=== PATIENT | female | born 1970 | race Caucasian/White ===

== ENCOUNTER → 2017-05-08 | Outpatient (CLI) | payer BC ==
--- NOTE | 2017-05-08 10:03 | MM ---
Reason for exam: additional evaluation requested from prior study. Last mammogram was performed 1 year ago. History: Patient is postmenopausal and has history of breast cancer at age 38. Mastectomy of the left breast, April 2009. Malignant left breast needle localization of both breasts, March 21, 2009. Lumpectomy of the left breast, March 21, 2009. Malignant US left guided VAD of the left breast, March 08, 2009. Chemotherapy, 2008. Radiation therapy, 2008. Taking antineoplastic for 5 years beginning at age 38. Physical Findings: Nurse did not find any significant physical abnormalities on exam. MG 3D Diag Mammo W/Cad RT CC and MLO view(s) were taken of the right breast. Prior study comparison: April 30, 2016, right breast MG 3d diag mammo w/cad RT. April 17, 2015, right breast MG 3d diag mammo w/cad RT. There are scattered fibroglandular densities. Tiny nodule posteriorly and inferiorly corresponds to a vessel on 3D images. Tiny nodular asymmetry laterally at a middle depth does not persist. These results were verbally communicated with the patient and result sheet given to the patient on 05/08/17. ASSESSMENT: Negative, BI-RAD 1 RECOMMENDATION: Follow-up diagnostic mammogram of the right breast in 1 year.
== END ==
LOC: RADMAMWWP 08:12
PROVIDERS: ATTEND Internal Medicine Hematology & Oncology
DX: Z08 Encounter for follow-up examination after completed treatment for malignant neoplasm (principal); Z85.3 Personal history of malignant neoplasm of breast
CPT/HCPCS: G0206; G0279

== ENCOUNTER → 2017-07-15 | Outpatient (CLI) | payer BC ==
--- NOTE | 2017-07-15 12:24 | BD ---
EXAMINATION TYPE: MG DEXA axial skeleton. DATE OF EXAM: 07/15/2017 CLINICAL HISTORY: Height: 69 Weight: 236 FRAX RISK QUESTIONS: Alcohol (3 or more units per day): no Family History (Parent hip fracture): no Glucocorticoids (More than 3mos): no (Ex: prednisone, prednisolone, methylprednisolone, dexamethasone, and hydrocortisone). History of Fracture in Adulthood: no Secondary Osteoporosis: 1. Type 1 Diabetes: no, type 2 2. Hyperthyroidism: no 3. Menopause before 45: 39 4. Malnutrition: no 5. Chronic liver disease: no Rheumatoid Arthritis: no Current Tobacco Use: no RISK FACTORS HISTORY OF: Family History of Osteoporosis: no Active: yes Diet low in dairy products/other sources of calcium: no Postmenopausal woman: yes Take estrogen and/or progesterone medications: no Lost more than 2 inches in height since high school: no Frequent falls: no Poor Health: no Hyperparathyroidism: no Adrenal Insufficiency: no MEDICATIONS: Prednisone or other steroids: no Thyroid Medications: no Osteoporosis Medications: no Additional Medications: calcium with vitamin D, diabetes meds, antineoplastic , blood pressure meds Additional History: Breast CA age 38; Radiation/Chemo EXAM MEASUREMENTS: Bone mineral densitometry was performed using the [employer] System. Bone mineral density as measured about the Lumbar spine is: ----- L1-L4(G/cm2): 1.336 T Score Values are as follows: ----- L2: 1.2 ----- L3: 2.3 ----- L4: 0.7 ----- L1-L4: 1.3 Bone mineral density has: Increased 0.4% since study of: 06/27/2015 Bone mineral density about the R hip (g/cm2): 0.962 Bone mineral density about the L hip (g/cm2): 0.968 T Score values are as follows: -----R Neck: -0.5 -----L Neck: -0.5 -----R Total: 0.6 -----L Total: 0.3 Bone mineral density has: Decreased -3.7% since study of: 06/27/2015 IMPRESSION: No evidence for osteoporosis or osteopenia. NOTE: T-SCORE=SD OF THE YOUNG ADULT MEAN.
== END | disposition home or self-care (01) ==
LOC: RADBDWWP 09:22
PROVIDERS: ATTEND Internal Medicine Hematology & Oncology
DX: C50.512 Malignant neoplasm of lower-outer quadrant of left female breast (principal); N95.1 Menopausal and female climacteric states; Z79.890 Hormone replacement therapy
CPT/HCPCS: 77080

== ENCOUNTER → 2018-06-26 | Outpatient (CLI) | payer BC ==
--- NOTE | 2018-06-30 08:02 | MM ---
Reason for exam: history of breast cancer, mastectomy. Last mammogram was performed 1 year and 2 months ago. History: Patient is postmenopausal and has history of breast cancer at age 38. Mastectomy of the left breast, April 2009. Malignant left breast needle localization of both breasts, March 21, 2009. Lumpectomy of the left breast, March 21, 2009. Malignant US left guided VAD of the left breast, March 08, 2009. Chemotherapy, 2008. Radiation therapy, 2008. Taking antineoplastic for 5 years beginning at age 38. Physical Findings: Nurse did not find any significant physical abnormalities on exam. MG 3D Diag Mammo W/Cad RT CC and MLO view(s) were taken of the right breast. Prior study comparison: May 08, 2017, right breast MG 3d diag mammo w/cad RT. April 30, 2016, right breast MG 3d diag mammo w/cad RT. There are scattered fibroglandular densities. No significant new finding when compared with prior studies. These results were verbally communicated with the patient and result sheet given to the patient on 06/26/18. ASSESSMENT: Benign, BI-RAD 2 RECOMMENDATION: Routine screening mammogram of the right breast in 1 year.
== END | disposition home or self-care (01) ==
LOC: RADMAMWWP 09:39
PROVIDERS: ATTEND Internal Medicine Hematology & Oncology
DX: Z08 Encounter for follow-up examination after completed treatment for malignant neoplasm (principal); Z85.3 Personal history of malignant neoplasm of breast
CPT/HCPCS: 77061; 77065

== ENCOUNTER → 2019-05-05 | Outpatient (CLI) | payer BC ==
[2019-05-05 08:14] LABS: African American GFR (CKD) >90 (>60 ml/min/1.73 sqM); Blood Urea Nitrogen 19 mg/dL (7-17); Non-African American GFR(CKD) 80 (>60 ml/min/1.73 sqM)
--- NOTE | 2019-05-05 10:01 | CT ---
EXAMINATION TYPE: CT ChestAbdPelvis w con DATE OF EXAM: 05/05/2019 INDICATION: Breast cancer, Osteoporosis COMPARISON: 04/27/2012 CT DLP: 2138.6 mGycm CONTRAST: Performed with Oral Contrast and with IV Contrast, patient injected with 100 mL of Isovue 300. TECHNIQUE: Axial images at 5 mm thick sections. Reconstructed images in the coronal plane. Delayed images through the kidneys. FINDINGS: CT CHEST: There is a left breast prosthesis. Portion of the thyroid visualized is normal. No suspicious lung nodules or focal infiltrates are present. No enlarged mediastinal or hilar adenopathy is evident. The ascending aorta diameter at the level of the main pulmonary artery is 3.2 cm. The main pulmonary artery diameter at the bifurcation is 2.[address] ABDOMEN: Liver: There is moderate fatty infiltration of the liver. No discrete masses or cysts are evident Spleen: Normal Pancreas: Normal Adrenal glands: The adrenal glands are normal. Gallbladder: Normal Kidneys: No masses are evident. No hydronephrosis is present. Small cortical renal cysts on the rig ht kidney on delayed images. Aorta: Vascular calcification is within the aorta. Inferior vena cava: Normal. CT PELVIS: Loops of bowel within the abdomen and pelvis are normal. There are loops of bowel which are incom pletely distended or lack oral contrast limiting their evaluation. Appendix: Normal as visualized. Urinary bladder: Normal. Genitourinary structures: Uterus contains a small amount of air within the endometrial canal. Correla te for recent instrumentation. Osseous structures:There may be a well-defined sclerotic lucency within the femoral neck. This was pr esent previously. There is a well-defined sclerotic area within the lower thoracic spine region of T1 1. This is a change from 2012. IMPRESSIONS: 1. No suspicious abnormality to account for left upper quadrant pain. 2. New sclerotic area within the T11 vertebral body. 3. Moderate fatty infiltration liver.
--- NOTE | 2019-05-05 11:39 | NM ---
EXAMINATION TYPE: NM bone scan whole body DATE OF EXAM: 05/05/2019 COMPARISON: Same day whole body CT. Prior bone scan 2012. HISTORY: Breast cancer. Delayed whole-body scanning was performed following the injection of 26 mCi Tc 99m MDP. Images acqui red 3 hours post injection. Whole body images in anterior and posterior projection as well as additio nal images of the thorax and abdomen are acquired In multiple projections. FINDINGS: No suspicious new areas of increased radiotracer uptake in the bones to suggest metastatic disease or other suspicious abnormality. Stable mild uptake right proximal femur intertrochanteric and subtroch anteric level correspond to well-defined lucent lesions with sclerotic margins unchanged from 2012 im aging presumed nonaggressive. IMPRESSION: As above.
== END | disposition home or self-care (01) ==
LOC: RADCTMAIN 07:35
PROVIDERS: ATTEND Internal Medicine Hematology & Oncology
DX: K76.0 Fatty (change of) liver, not elsewhere classified (principal); M25.851 Other specified joint disorders, right hip; M81.0 Age-related osteoporosis without current pathological fracture; C50.512 Malignant neoplasm of lower-outer quadrant of left female breast; Z91.048 Other nonmedicinal substance allergy status; Z88.6 Allergy status to analgesic agent
CPT/HCPCS: 82565; 84520; 71260; 74177; 36415; 78306; A9503; Q9967 ×2

== ENCOUNTER → 2019-11-19 | Outpatient (CLI) | payer BC ==
--- NOTE | 2019-11-23 10:32 | MM ---
Reason for exam: additional evaluation requested from prior study. Last mammogram was performed 1 year and 5 months ago. History: Patient is postmenopausal and has history of breast cancer at age 38. Silicone gel implant in the left breast, 2012. Mastectomy of the left breast, April 2009. Malignant left breast needle localization of both breasts, March 21, 2009. Lumpectomy of the left breast, March 21, 2009. Malignant US left guided VAD of the left breast, March 08, 2009. Chemotherapy, 2008. Radiation therapy, 2008. Taking antineoplastic for 5 years beginning at age 38. Physical Findings: Nurse did not find any significant physical abnormalities on exam. MG 3D Diag Mammo W/Cad RT CC and MLO view(s) were taken of the right breast. Prior study comparison: June 26, 2018, right breast MG 3d diag mammo w/cad RT. May 08, 2017, right breast MG 3d diag mammo w/cad RT. There are scattered fibroglandular densities. Stable axillary tail nodes. No significant new findings when compared with previous films. These results were verbally communicated with the patient and result sheet given to the patient on 11/19/19. ASSESSMENT: Negative, BI-RAD 1 RECOMMENDATION: Follow-up diagnostic mammogram of the right breast in 1 year.
== END | disposition home or self-care (01) ==
LOC: RADMAMWWP 14:32
PROVIDERS: ATTEND Internal Medicine Hematology & Oncology
DX: Z85.3 Personal history of malignant neoplasm of breast (principal)
CPT/HCPCS: 77061; 77065

== ENCOUNTER → 2019-12-20 | Outpatient (CLI) | payer BC ==
--- NOTE | 2019-12-21 18:53 | BD ---
EXAMINATION TYPE: Axial Bone Density DATE OF EXAM: 12/20/2019 COMPARISON: NONE CLINICAL HISTORY: Height: 5 FT 9 IN Weight: 233 FRAX RISK QUESTIONS: Alcohol (3 or more units per day): NO Family History (Parent hip fracture): NO Glucocorticoids (More than 3mos): NO (Ex: prednisone, prednisolone, methylprednisolone, dexamethasone, and hydrocortisone). History of Fracture in Adulthood: NO Secondary Osteoporosis: 1. Type 1 Diabetes: NO 2. Hyperthyroidism: NO 3. Menopause before 45: YES 4. Malnutrition: NO 5. Chronic liver disease: NO Rheumatoid Arthritis: NO Current Tobacco Use: NO RISK FACTORS HISTORY OF: Active: YES Postmenopausal woman: OVARIES REMOVED AGE 39 MEDICATIONS: Additional Medications: ARIMEDEX, BYSTOLIC,INVOCANNA, Additional History: BREAST CANCER 2009 RADIATION AND CHEMO EXAM MEASUREMENTS: Bone mineral densitometry was performed using the [employer] System. Bone mineral density as measured about the Lumbar spine is: ----- L1-L4(G/cm2): 1.300 T Score Values are as follows: ----- L2: 2.0 ----- L3: 1.0 ----- L4: -0.2 ----- L1-L4: 1.0 Bone mineral density has: DECREASED -4.5 % since study of: 2017 Bone mineral density about the R hip (g/cm2): 0.957 Bone mineral density about the L hip (g/cm2): 0.913 T Score values are as follows: -----R Neck: -0.6 -----L Neck: -0.9 -----R Total: 0.5 -----L Total: 0.4 Bone mineral density has: INCREASED 0.2 % since study of: 2018 IMPRESSION: Normal (Values between +1 and -1 indicate normal bone mass). Consider repeating this study in 5 year s or sooner if there is some new clinical indication. NOTE: T-SCORE=SD OF THE YOUNG ADULT MEAN.
== END | disposition home or self-care (01) ==
LOC: RADBDWWP 16:16
PROVIDERS: ATTEND Internal Medicine Hematology & Oncology
DX: M81.0 Age-related osteoporosis without current pathological fracture (principal)
CPT/HCPCS: 77080

== ENCOUNTER 2020-03-30 07:30 | Day surgery (SDC) | payer BC ==
[2020-03-28 11:11] VITALS: BMI 33.5
[~2020-03-30 07:30] MED LIST: LACTATED RINGERS 1,000 ML IV SCH
[2020-03-30] MEDS ORDERED: LIDOCAINE 1% (10MG/ML) FOR IV START INTRADERMA ONE (07:55)
[2020-03-30 07:58] VITALS: RESP 16; TEMP 97.7
[2020-03-30] MEDS ORDERED: PROPOFOL 10 MG/ML 20 ML VIAL IV ONE (08:25)
--- NOTE | 2020-03-30 08:54 | P.PCN ---
Date of Procedure: 03/30/20 Description of Procedure: BRIEF HISTORY: Patient is a 49-year-old female presenting for outpatient colonoscopy for screening for malignant neoplasm of the colon. The patient reports prior colonoscopy approximately 7 years ago at the time of her diagnosis of breast cancer. She denies any change in bowel habits or blood per rectum. No family history of colon cancer. PROCEDURE PERFORMED: Colonoscopy with polypectomy. PREOPERATIVE DIAGNOSIS: Screening for malignant neoplasm of the colon, last colonoscopy 7 years. ESTIMATED BLOOD LOSS: Minimal. IV sedation per Anesthesia. PROCEDURE: After informed consent was obtained, the patient, was brought into the endoscopy unit. IV sedation was administered by Anesthesia under continuous monitoring. Digital rectal examination was normal. Initially the Olympus CF-190 flexible video colonoscope was then inserted in the rectum, gradually advanced into the cecum without any difficulty. Careful examination was performed as the scope was gradually being withdrawn. Ileocecal valve and the appendiceal orifice were visualized and appeared normal. Prep was excellent. Mucosa of the cecum, ascending colon, transverse colon, descending colon, sigmoid colon, and rectum appeared normal. diminutive 1 mm ascending colon polyp removed with cold forcep polypectomy. 2 flat polyps removed with cold snare polypectomy from the transverse colon measuring 4 mm in size and from the splenic flexure measuring 5 mm in size. Retroflexion was performed in the rectum and no lesions were seen. The patient tolerated the procedure well. IMPRESSION: 2 flat polyps removed with the family the transverse colon and splenic flexure. Diminutive ascending colon polyp removed with cold forcep polypectomy. RECOMMENDATIONS: Findings of this examination were discussed with the patient and her . Okay to resume diet. Continue medications. Would recommend repeat colonoscopy in 5 years for colon polyp pending pathology from polypectomy.
[2020-03-30 09:38] VITALS: BP 115/76; PULSE 55
== END 2020-03-30 09:40 | disposition home or self-care (01) ==
LOC: ORWHC2ENDO 07:30
PROVIDERS: ATTEND Internal Medicine
DX: Z12.11 Encounter for screening for malignant neoplasm of colon (principal); E11.9 Type 2 diabetes mellitus without complications; C50.919 Malignant neoplasm of unspecified site of unspecified female breast; K63.5 Polyp of colon; D12.3 Benign neoplasm of transverse colon; I10 Essential (primary) hypertension; E78.5 Hyperlipidemia, unspecified; Z88.5 Allergy status to narcotic agent; Z91.09 Other allergy status, other than to drugs and biological substances; Z79.899 Other long term (current) drug therapy; Z79.811 Long term (current) use of aromatase inhibitors; Z90.10 Acquired absence of unspecified breast and nipple; Z98.890 Other specified postprocedural states
CPT/HCPCS: 88305; 45380; 45385; J2704

== ENCOUNTER → 2020-11-21 | Outpatient (CLI) | payer BC ==
--- NOTE | 2020-11-23 12:34 | MM ---
Reason for exam: additional evaluation requested from prior study. Last mammogram was performed 1 year ago. History: Patient is postmenopausal and has history of breast cancer at age 38. Silicone gel implant in the left breast, 2012. Mastectomy of the left breast, April 2009. Malignant left breast needle localization of both breasts, March 21, 2009. Lumpectomy of the left breast, March 21, 2009. Malignant US left guided VAD of the left breast, March 08, 2009. Chemotherapy, 2008. Radiation therapy, 2008. Taking antineoplastic for 5 years beginning at age 38. Physical Findings: Nurse did not find any significant physical abnormalities on exam. MG 3D Diag Mammo W/Cad RT CC and MLO view(s) were taken of the right breast. Prior study comparison: November 19, 2019, right breast MG 3d diag mammo w/cad RT. June 26, 2018, right breast MG 3d diag mammo w/cad RT. There are scattered fibroglandular densities. Stable post left mastectomy. These results were verbally communicated with the patient and result sheet given to the patient on 11/21/20. ASSESSMENT: Benign, BI-RAD 2 RECOMMENDATION: Routine screening mammogram of the right breast in 1 year.
== END | disposition home or self-care (01) ==
LOC: RADMAMWWP 08:14
PROVIDERS: ATTEND Internal Medicine Hematology & Oncology
DX: N64.89 Other specified disorders of breast (principal); Z78.0 Asymptomatic menopausal state; Z85.3 Personal history of malignant neoplasm of breast; Z90.12 Acquired absence of left breast and nipple
CPT/HCPCS: 77061; 77065

== ENCOUNTER → 2021-01-10 | Outpatient (CLI) | payer BC ==
--- NOTE | 2021-01-11 08:13 | BMR ---
EXAMINATION TYPE: MR breast BILAT wo con DATE OF EXAM: 01/10/2021 COMPARISON: Chest CT May 05, 2019. Diagnostic right breast 3-D mammogram November 21, 2020 BI-RADS 2 . HISTORY: Evaluate for Left Implant Rupture, Breast changes shape, just doesn't feel right, history of left breast neoplasm 2008, silicone implant placed 2012. TECHNIQUE: A series of fat and water weighted images in the long and short axis views of both breasts are obtained in conjunction with dynamic contrast MRI with subtraction technique without IV contrast . The Three-dimensional and additional postprocessing imaging is created on independent workstation and reviewed during official interpretation of this study. FINDINGS: Scattered fibroglandular tissue throughout the right breast is redemonstrated. T2-weighted images show no suspicious axillary adenopathy. There is persistent subpectoral left breast silicone i mplant. There is no evidence of silicone outside the implant to suggest extracapsular rupture. Slight infolding along the peripheral margins has similar appearance to 2019 CT. No new suspicious marked i nfolding or layering or keyhole sign to suggest intracapsular rupture. There is asymmetry to the koko sts on MRI with more prominent right breast but this is likely product of imaging in prone position v ersus supine position on CT. No suspicious skin thickening is seen. Chest wall is intact bilaterally. IMPRESSION: No MRI evidence for intracapsular or extracapsular left breast implant rupture. BI-RADS 2 benign findings. Recommendation: Manage patient on left breast symptoms on clinical basis. Patient due for continued a nnual right breast mammogram November 2021.
== END | disposition home or self-care (01) ==
LOC: RADMRIMAIN 13:34
PROVIDERS: ATTEND Plastic Surgery
DX: Z03.89 Encounter for observation for other suspected diseases and conditions ruled out (principal)
CPT/HCPCS: 77047

== ENCOUNTER → 2021-12-24 | Outpatient (CLI) | payer BC ==
--- NOTE | 2021-12-24 11:28 | BD ---
EXAMINATION TYPE: Axial Bone Density DATE OF EXAM: 12/24/2021 COMPARISON: 07.15.2017 CLINICAL HISTORY: 51 years year old Female. ICD-10 CODE: C50.512 BR CANCER; Z79.890 HRT Height: 68.8 Weight: 233 FRAX RISK QUESTIONS: Secondary Osteoporosis: 3. Menopause before 45: YES RISK FACTORS HISTORY OF: Active: YES Postmenopausal woman: YES PARTIAL HYSTERECTOMY AT 39 MEDICATIONS: Additional Medications: CALCIUM WITH VITAMIN D, BP MEDS, CHOLESTEROL MEDS, DIABETIC MEDS, ANTINEOPLAS TIC Additional History: LEFT MASTECTOMY AT AGE 38, CHEMO AND RADIATION EXAM MEASUREMENTS: Bone mineral densitometry was performed using the [employer] System. Bone mineral density as measured about the Lumbar spine is: ----- L1-L4(G/cm2): 1.316 T Score Values are as follows: ----- L1: 2.3 ----- L2: 3.1 ----- L3: 0.4 ----- L4: -0.8 ----- L1-L4: 1.1 Bone mineral density has: Decreased -5.6% since study of: 07.15.2017 Bone mineral density about the R hip (g/cm2): 1.098 Bone mineral density about the L hip (g/cm2): 1.039 T Score values are as follows: -----R Neck: -0.5 -----L Neck: -0.8 -----R Total: 0.7 -----L Total: 0.3 Bone mineral density has: Increased 0.5% since study of: 07.15.2017 FRAX%s: The graph provided illustrates a 4.6% chance for a major osteoporotic fx and a 0.2% chance fo r the hips probability for fx in 10 years time. IMPRESSION: Normal (Values between +1 and -1 indicate normal bone mass). Consider repeating this study in 5 year s or sooner if there is some new clinical indication. NOTE: T-SCORE=SD OF THE YOUNG ADULT MEAN.
== END | disposition home or self-care (01) ==
LOC: RADBDWWP 10:01
PROVIDERS: ATTEND Internal Medicine Hematology & Oncology
DX: C50.512 Malignant neoplasm of lower-outer quadrant of left female breast (principal); Z78.0 Asymptomatic menopausal state
CPT/HCPCS: 77080

== ENCOUNTER → 2022-01-18 | Outpatient (CLI) | payer BC ==
--- NOTE | 2022-01-20 13:30 | PE ---
EXAMINATION TYPE: PET CT fusion skull to thigh DATE OF EXAM: 01/18/2022 CLINICAL INDICATION:Female, 51 years old with history of [id number]; left breast cancer. TECHNIQUE: Following the intravenous administration of 12.1 mCi of F-18 FDG, whole body images are performed from the skull base to the midthigh. Images are reviewed on the computer in the coronal, a xial, and sagittal planes. Reconstructed rotating images are created on independent workstation and reviewed on the computer. A non-contrast CT is performed in conjunction with the PET scan. Glucose level 123 mg/dL COMPARISON: CT 05/05/2019, PET/CT 09/23/2009. FINDINGS: Mediastinal SUV maximum is 2.3. Hepatic parenchyma SUV maximum is 3.1. SKULL BASE AND NECK: No suspicious FDG activity. CHEST, MEDIASTINUM, AND HILAR REGION: No suspicious FDG activity. ABDOMEN AND PELVIS: No suspicious FDG activity. Physiologic uptake is seen within the bowel and renal collecting systems. OSSEOUS STRUCTURES: Scattered new and increase in size of sclerotic osteoblastic disease throughout t he spine. There are new destructive osteolytic metastatic disease on today's exam most pronounced at C5. Additional there is moderate scattered increase in sclerotic osteoblastic disease and osteolytic/ destructive lesions. There are new sclerotic areas within the right iliac bone and right sacrum. There is abnormal FDG uptake within the spine examples include. - T1 vertebral body posterior left axis max SUV 3.5 - T5 vertebral body and posterior elements max SUV 6.7. - T6 posterior elements max SUV 4.3 - T7 posterior elements Max SUV 3.6 - T9 posterior elements Max SUV 4.[address]: The left breast is surgically absent. Implant appears intact. Surgical clips are seen in th e left axilla. Hepatic steatosis is present. Colonic diverticula present. IMPRESSION: Progression of disease with multilevel spinal sclerotic osseous metastatic disease which have increas ed in size and number with additional new areas of osseous lytic destruction most pronounced at T5 po sterior elements.
== END | disposition home or self-care (01) ==
LOC: RADPETMAIN 09:24
PROVIDERS: ATTEND Internal Medicine Hematology & Oncology
DX: C50.512 Malignant neoplasm of lower-outer quadrant of left female breast (principal); G95.89 Other specified diseases of spinal cord
CPT/HCPCS: 78815; A9552

== ENCOUNTER → 2022-04-29 | Outpatient (CLI) | payer BC ==
[2022-04-29 12:36] LABS: African American GFR (CKD) >90 (>60 ml/min/1.73 sqM); Blood Urea Nitrogen 15 mg/dL (7-17); Non-African American GFR(CKD) >90 (>60 ml/min/1.73 sqM)
--- NOTE | 2022-04-29 13:12 | CT ---
EXAMINATION TYPE: CT abdomen w con CT DLP: 1326.50 mGycm, Automated exposure control for dose reduction was used. DATE OF EXAM: 04/29/2022 12:58 PM COMPARISON: PET/CT 01/18/2022 CLINICAL INDICATION:Female, 51 years old with history of breast ca; elevated liver enzymes TECHNIQUE: Axial CT of the abdomen and pelvis. Sagittal and coronal reformats were created on a [employer] workstation. Contrast used:70 mL of Isovue 300 with IV Contrast, Oral contrast used: with Oral Contrast FINDINGS: LOWER CHEST: Unremarkable ABDOMEN LIVER: No evidence for biliary ductal dilatation or mass. GALLBLADDER AND BILE DUCTS: Unremarkable. PANCREAS: Unremarkable. SPLEEN: Unremarkable. ADRENAL GLANDS: Unremarkable. KIDNEYS AND URETERS: No evidence of hydronephrosis or renal calculus. The ureters are unremarkable. Right subcentimeter probable cyst. PELVIS BLADDER: Unremarkable REPRODUCTIVE: Unremarkable. ABDOMEN & PELVIS STOMACH AND BOWEL: No evidence of bowel obstruction. PERITONEUM: No evidence of pneumoperitoneum or free fluid. VASCULATURE: No evidence of aortic aneurysm. MUSCULOSKELETAL: No evidence of acute fracture. Scattered sclerotic areas are seen throughout the oss eous structures; some of these sclerotic foci appear more dense including sacral lesion measuring 7 m m and L1 vertebral body lesion measuring up to 9 mm which may be fractionally larger than prior at 7 mm. LYMPH NODES: No gross evidence for lymphadenopathy. SOFT TISSUE/ABDOMINAL WALL: Unremarkable IMPRESSION: 1. No evidence for acute abdominal process. The liver parenchyma appears homogenous without evidence of mass or biliary ductal dilatation. 2. Scattered osseous sclerotic metastatic disease some of which may be minimally increased and sclero sis from prior. Attention on follow-up PET/CT as clinically warranted.
== END | disposition home or self-care (01) ==
LOC: RADCTMAIN 11:40
PROVIDERS: ATTEND Internal Medicine Hematology & Oncology
DX: K76.89 Other specified diseases of liver (principal); Z17.0 Estrogen receptor positive status [ER+]; R74.8 Abnormal levels of other serum enzymes; Z85.3 Personal history of malignant neoplasm of breast
CPT/HCPCS: 82565; 84520; 74160; 36415; Q9967 ×2

== ENCOUNTER → 2023-01-04 | Outpatient (CLI) | payer BC ==
--- NOTE | 2023-01-04 13:49 | PE ---
EXAMINATION TYPE: PET CT fusion skull to thigh DATE OF EXAM: 01/04/2023 CLINICAL INDICATION:Female, 52 years old with history of C50.512 breast ca; TECHNIQUE: Following the intravenous administration of 12.34 mCi of F-18 FDG, whole body images are performed from the skull base to the midthigh. Images are reviewed on the computer in the coronal, axial, and sagittal planes. Reconstructed rotating images are created on independent workstation and reviewed on the computer. A non-contrast CT is performed in conjunction with the PET scan. Glucose level 96 mg/dL COMPARISON: CT None, PET/CT 01/18/2022, FINDINGS: Mediastinal SUV maximum is 1.2. Hepatic parenchyma SUV maximum is 2.2 SKULL BASE AND NECK: No suspicious FDG activity. CHEST, MEDIASTINUM, AND HILAR REGION: No suspicious FDG activity. ABDOMEN AND PELVIS: No suspicious FDG activity. Physiologic uptake is seen within the bowel and renal collecting systems. OSSEOUS STRUCTURES: Interval increase in sclerosis compatible with osteoblastic metastatic disease th roughout the spine. There are new sclerotic areas within the right iliac bone and right sacrum. There is abnormal FDG uptake within the spine examples include. - T1 vertebral body posterior left axis max SUV 2.1, previously 3.5 - T5 vertebral body and posterior elements max SUV 2.4, previously 6.7. - T6 posterior elements max SUV 2.9, previously 4.3 - T7 posterior elements Max SUV 1.9, previously 3.6 - T9 posterior elements Max SUV 2.1, previously 4.2 - T11 vertebral body max SUV 2.6, personally 2.3. OTHER CT: The left breast is surgically absent. Implant appears intact. Surgical clips are seen in th e left axilla. Hepatic steatosis is present. Colonic diverticula present. IMPRESSION: Progression of sclerosis throughout the osseous structures. Suggesting posttreatment change. Multiple areas remain within the spine with increased FDG activity which have decreased from prior suggesting positive response to therapy.
== END | disposition home or self-care (01) ==
LOC: RADPETMAIN 09:49
PROVIDERS: ATTEND Internal Medicine Hematology & Oncology
DX: C50.512 Malignant neoplasm of lower-outer quadrant of left female breast (principal)
CPT/HCPCS: 78815; A9552

== ENCOUNTER → 2023-07-31 | Outpatient (CLI) | payer BC ==
[2023-07-31 12:01] LABS: African American GFR (CKD) >90 (>60 ml/min/1.73 sqM); Blood Urea Nitrogen 15 mg/dL (7-17); Non-African American GFR(CKD) >90 (>60 ml/min/1.73 sqM)
--- NOTE | 2023-07-31 13:01 | CT ---
EXAMINATION: CT CHEST, ABDOMEN AND PELVIS WITH IV CONTRAST DATE OF EXAMINATION: 29/07/2023. COMPARISON: PET/CT on 01/04/2023.. INDICATION: Breast cancer. PROCEDURE: Axial CT of the chest, abdomen and pelvis was performed following the intravenous adminis tration of 100 ml Isovue 300. Coronal and sagittal reformats were performed. CT dose lowering techni ques were used, to include: automated exposure control, adjustment for patient size, and/or use of it erative reconstruction. FINDINGS: CHEST: CHEST WALL: There is a left-sided breast implant with prior left mastectomy. Surgical clips are seen within the left axillary region. Mediastinum and Dulce: There is no axillary, mediastinal or hilar lymphadenopathy. Subcentimeter right thyroid nodule. Pleural and Pericardial spaces: There are no pleural or pericardial effusions. Cardiovascular: The thoracic aorta is normal in size without evidence of aneurysm or dissection. Pulmonary Artery: There are no central pulmonary arterial filling defects. Lung Parenchyma and Airways: The lungs are clear. ABDOMEN: Liver and Biliary system: There is mild diffuse decreased attenuation of the liver compatible fatty liver infiltration. No focal liver lesions are seen. Adrenal glands: Normal. Kidneys and ureters: There is a 1.4 cm cyst in the upper pole the right kidney. Kidneys and ureters otherwise appear unremarkable. Spleen: Normal. Pancreas: Normal. Gallbladder: Normal. Lymph nodes, Peritoneum and mesentery: There is no mesenteric or retroperitoneal lymphadenopathy. Gastrointestinal tract: There are no dilated loops of bowel or free intraperitoneal air. . The appe ndix is normal. Aorta/IVC: There is mild vascular calcification throughout the abdominal aorta without evidence of aneurysmal dilation or dissection.. IVC normal. Abdominal wall: Normal. PELVIS: Fluid: There is trace free fluid within the pelvis. Lymph Nodes: There is no pelvic or inguinal lymphadenopathy.. Urinary bladder: Normal. BONES: Similar appearance to the osseous chronic metastatic disease.. ADDITIONAL SIGNIFICANT FINDINGS: None. IMPRESSION: 1. Similar appearance to the atherosclerotic metastatic disease. 2. No other evidence of metastatic disease definitively identified in the chest, abdomen or pelvis. 3. Additional incidental findings noted above.
--- NOTE | 2023-08-01 11:24 | NM ---
EXAMINATION TYPE: NM bone scan whole body DATE OF EXAM: 07/31/2023 COMPARISON: 05/05/[address] 07/31/2023 CLINICAL INDICATION: Female, 52 years old with history of C50.512 BR CA; TECHNIQUE: Delayed whole-body scanning was performed following the injection of 23 mCi Tc 99m MDP. I mages acquired 4 hours post injection. FINDINGS: There is increased activity throughout the upper third thoracic spine and around the region of the th oracolumbar junction. Abnormal activity along the right side of the mandible and along the lateral as pect of the left lower ribs. Also involving the anterior right iliac crest and in the region of the l eft SI joint. IMPRESSION: Scintigraphic evidence for osseous metastatic disease to the right mandible, lateral left lower ribs, anterior right iliac crest, left SI joint region, as well as the upper third thoracic spine and thor acolumbar junction. Findings are new from the patient's 2019 prior bone scan.
== END | disposition home or self-care (01) ==
LOC: RADNMMAIN 10:49
PROVIDERS: ATTEND Internal Medicine Hematology & Oncology
DX: C50.512 Malignant neoplasm of lower-outer quadrant of left female breast (principal); M13.0 Polyarthritis, unspecified; M81.0 Age-related osteoporosis without current pathological fracture; I10 Essential (primary) hypertension; Z17.0 Estrogen receptor positive status [ER+]
CPT/HCPCS: 82565; 84520; 71260; 74177; 36415; 78306; A9503; Q9967

== ENCOUNTER → 2023-10-17 | Outpatient (CLI) | payer BC ==
[2023-10-17 10:53] LABS: African American GFR (CKD) >90 (>60 ml/min/1.73 sqM); Blood Urea Nitrogen 17 mg/dL (7-17); Non-African American GFR(CKD) >90 (>60 ml/min/1.73 sqM)
--- NOTE | 2023-10-17 12:52 | CT ---
EXAMINATION TYPE: CT ChestAbdPelvis w con CT DLP: 1475 mGycm, Automated exposure control for dose reduction was used. DATE OF EXAM: 10/17/2023 12:08 PM COMPARISON: 07/31/2023, 01/04/2023 CLINICAL INDICATION:Female, 53 years old with history of C50.512 MAL IG NEOPLASM OF LOWER-OUTER QUADRANT OF; [facility], Technique: CT ChestAbdPelvis w con; Multiple axial images were obtained. Two-dimensional coronal and sagittal reconstructions were obtained. Contrast used:100 mL of Isovue 300 with IV Contrast, Oral contrast used: with Oral Contrast Findings: LUNGS/ PLEURA: The lung parenchyma appears unremarkable. AIRWAY: Patent and unremarkable. HEART: Size within normal limits. MEDIASTINUM: No gross evidence of adenopathy. VASCULATURE: No aortic aneurysm. SOFT TISSUES/LYMPH NODES: Left breast implant appears intact. No lymph nodes identified within the ax illa.r right thyroid gland nodule measuring 8 mm. LOWER NECK: No significant findings. ABDOMEN LIVER: Unremarkable GALLBLADDER AND BILE DUCTS: Unremarkable. PANCREAS: Unremarkable. SPLEEN: Unremarkable. ADRENAL GLANDS: Unremarkable. KIDNEYS AND URETERS: No evidence of hydronephrosis or renal calculus. The ureters are unremarkable. PELVIS BLADDER: Unremarkable REPRODUCTIVE: Unremarkable. ABDOMEN & PELVIS STOMACH AND BOWEL: No evidence of bowel obstruction. Moderate amount of stool throughout the colon. PERITONEUM: No evidence of pneumoperitoneum or free fluid. VASCULATURE: Mild atherosclerotic calcifications are present throughout the abdominal aorta and its b ranches. MUSCULOSKELETAL: Scattered sclerotic osseous metastatic disease which is not significantly changed in size. SOFT TISSUE/ABDOMINAL WALL: Unremarkable IMPRESSION: Similar osseous metastatic disease. No evidence for lymphadenopathy. No new or enlarging pulmonary no dule.
--- NOTE | 2023-10-17 15:43 | NM ---
EXAMINATION TYPE: NM bone scan whole body DATE OF EXAM: 10/17/2023 COMPARISON: 07/31/2023. CT same day CLINICAL INDICATION: Female, 53 years old with history of C50.512 MALIG NEOPLASM OF LOWER-OUTER QUADR ANT OF; TECHNIQUE: Delayed whole-body scanning was performed following the injection of 23.2 mCi Tc 99m MDP. Images acquired 3.5 hours post injection. FINDINGS: Abnormal tracer activity right mandible, lateral left lower ribs, middle third thoracic spine, thorac olumbar junction, and left medial pelvis are redemonstrated. Overall intensity and extent of activity appears to be diminishing. IMPRESSION: Redemonstrated abnormal foci of activity as before compatible with osseous metastatic dis ease. However, the slightly decreasing intensity and extent of activity suggests some interval partia l treatment response.
== END | disposition home or self-care (01) ==
LOC: RADNMMAIN 09:55
PROVIDERS: ATTEND Internal Medicine Hematology & Oncology
DX: C79.51 Secondary malignant neoplasm of bone (principal); C50.512 Malignant neoplasm of lower-outer quadrant of left female breast; M13.0 Polyarthritis, unspecified; I10 Essential (primary) hypertension; M81.0 Age-related osteoporosis without current pathological fracture; Z17.0 Estrogen receptor positive status [ER+]
CPT/HCPCS: 36415; 71260; 74177; 78306; 82565; 84520

== ENCOUNTER → 2024-01-19 | Outpatient (CLI) | payer BC ==
--- NOTE | 2024-02-15 09:21 | CT ---
Patient Cassie Michel ID [id number] 1970 Age 53 years Gender F Order # EXAMINATION TYPE: CT ChestAbdPelvis w con DATE OF EXAM: 01/26/2024 INDICATION: Breast cancer COMPARISON: 10/17/2023 CT DLP: 1293 mGycm CONTRAST: Performed with Oral Contrast and with IV Contrast, patient injected with 100 mL of Isovue 300. TECHNIQUE: Axial images at 5 mm thick sections. Reconstructed images in the coronal plane. Delayed images through the kidneys. FINDINGS: CT CHEST: Portion of the thyroid visualized is normal. No suspicious lung nodules or focal infiltrates are present. Left breast prosthesis is present. No enlarged mediastinal or hilar adenopathy is evident. The ascending aorta diameter at the level of the main pulmonary artery is 3.4 cm. The main pulmonary artery diameter at the bifurcation is 2.[address] ABDOMEN: Liver: Normal Spleen: Normal Pancreas: Normal Adrenal glands: The adrenal glands are normal. Gallbladder: Normal Kidneys: No masses are evident. No hydronephrosis is present. There is a 1.6 cm cyst anterior media l right renal upper pole. Small cortical renal cyst on the posterior mid to inferior pole right kidne y. Delayed images were obtained through the kidneys, which remain unremarkable. Aorta: Vascular calcification is within the aorta. Inferior vena cava: Normal. CT PELVIS: Loops of bowel within the abdomen and pelvis are normal. There are loops of bowel which are incom pletely distended or lack oral contrast limiting their evaluation. Appendix: Not identified. No dilated tubular structure or inflammatory changes. Urinary bladder: Normal. Genitourinary structures: Uterus and adnexa appear normal. Osseous structures: There is a sclerotic area suspicious for metastasis within the posterior right fa scial ramus. There is a irregular mid right femoral head sclerotic area. Some lytic areas are within the right femoral neck near the lesser trochanter. Irregular sclerosis mid left ilium. Image 106. Scl erotic areas are within the sacrum and iliac wings. There are scattered small sclerotic areas within the lumbar spine. The spinous process sclerotic areas present within the mid lumbar spine. Posterior lower right rib sclerosis is present. Multiple thoracic body areas of sclerosis are present. Addition al scattered left rib sclerotic areas are present. Findings are suspicious for sclerotic metastases, present previously. New metastases are not identified. IMPRESSION: 1. Multiple stable appearing sclerotic osseous metastases. 2. No suspicious new metastatic lesions identified. 3. Small cortical right renal cysts.
== END | disposition home or self-care (01) ==
LOC: RADCTMAIN 08:53
PROVIDERS: ATTEND Internal Medicine Hematology & Oncology
DX: C50.512 Malignant neoplasm of lower-outer quadrant of left female breast (principal); I10 Essential (primary) hypertension; M13.0 Polyarthritis, unspecified; M81.0 Age-related osteoporosis without current pathological fracture; Z17.0 Estrogen receptor positive status [ER+]; C79.51 Secondary malignant neoplasm of bone; N28.1 Cyst of kidney, acquired
CPT/HCPCS: 71260; 74177; 36415; Q9967

== ENCOUNTER → 2024-01-30 | Outpatient (CLI) | payer BC ==
--- NOTE | 2024-02-25 13:56 | NM ---
Patient: Cassie Michel Ordering Physician: Unknown, Unknown ID: [id number] Phone, Pager: Phone: N/A Pager: N/A : 1970 Age/Gender: 53Y, F Primary Location: N/A Procedure: NM BONE SCAN WHOLE BODY 86026 Study Date: 01/30/2024 1:25:00 PM EXAMINATION TYPE: NM bone scan whole body DATE OF EXAM: 01/30/2024 COMPARISON: Correlation CT 01/19/2024. Bone scan 07/31/2023 CLINICAL INDICATION: 53-year-old female history of breast cancer with metastasis to the bone, remote left fibular fracture as a child. Jaw pain for one year. Z17.0, I10, M13.0, M81.0, C50.512 TECHNIQUE: Delayed whole-body scanning was performed following the injection of 22.1 mCi Tc 99m MDP. Images acquired 3 hours post injection. FINDINGS: There is focal increased activity along the anterior right mandible, right superolateral calvarium, s ternal manubrium, prominent throughout the upper third thoracic spine, lower thoracic spine, medial l eft iliac bone, and posterior right acetabulum. Additional activity probably involving the lateral le ft lower thoracic rib. All of these findings are suspicious. IMPRESSION: Findings outlined above compatible with osseous metastatic disease. Overall distribution is similar c ompared to 07/31/2023. A few foci such as the right calvarium and posterior right acetabulum may be ne w/increased.
== END | disposition home or self-care (01) ==
LOC: RADNMMAIN 10:17
PROVIDERS: ATTEND Internal Medicine Hematology & Oncology
DX: R68.84 Jaw pain (principal); Z85.3 Personal history of malignant neoplasm of breast
CPT/HCPCS: 78306; A9503

== ENCOUNTER → 2024-11-22 | Outpatient (CLI) | payer BC ==
[2024-11-22 11:03] LABS: African American GFR (CKD) >90 (>60 ml/min/1.73 sqM); Blood Urea Nitrogen 23 mg/dL (7-17); Non-African American GFR(CKD) 83 (>60 ml/min/1.73 sqM)
--- NOTE | 2024-11-22 16:02 | CT ---
EXAMINATION TYPE: CT ChestAbdPelvis w con DATE OF EXAM: 11/22/2024 12:27 PM COMPARISON: 02/11/2024 CLINICAL INDICATION: Female, 54 years old with history of C50.512 MALIG NEOPLASM OF LOWER-OUTER QUADR ANT OF; [facility], back and right hip pain x 2 weeks, h/o breast cancer Technique: CT ChestAbdPelvis w con; Multiple axial images were obtained. Two-dimensional coronal and sagittal reconstructions were obtained. Contrast used:100 ml mL of Isovue 300 with IV Contrast, (None if empty) Oral contrast used: with Oral Contrast CT DLP: 1663 mGycm, Automated exposure control for dose reduction was used. Findings: CHEST: LUNGS/ PLEURA: No focal consolidation, pneumothorax or pleural effusion. AIRWAY: Patent and unremarkable. HEART: Size within normal limits. No significant coronary artery calcifications. MEDIASTINUM: No gross evidence of adenopathy. VASCULATURE: No aortic aneurysm. MUSCULOSKELETAL: No acute osseous abnormalities. Increased sclerosis of the T12 vertebral body and T6 and T5 vertebral bodies.a SOFT TISSUES/LYMPH NODES: Left breast implant appears intact. No lymphadenopathy or mass. Surgical cl ips present in the left axilla. Suspicious right breast lesions. LOWER NECK: No significant findings. ABDOMEN: ABDOMEN LIVER: Unremarkable GALLBLADDER AND BILE DUCTS: Unremarkable. PANCREAS: Unremarkable. SPLEEN: Unremarkable. ADRENAL GLANDS: Unremarkable. KIDNEYS AND URETERS: No evidence of hydronephrosis or obstructing renal calculus. The ureters are unr emarkable. Simple appearing right renal cysts. No follow-up recommended. PELVIS BLADDER: Unremarkable REPRODUCTIVE: Unremarkable. ABDOMEN & PELVIS STOMACH AND BOWEL: No evidence of bowel obstruction. PERITONEUM/RETROPERITONEUM: No evidence of pneumoperitoneum or free fluid. VASCULATURE: No evidence of aortic aneurysm. MUSCULOSKELETAL: No acute osseous abnormalities Stable scattered sclerotic foci. LYMPH NODES: No gross evidence for lymphadenopathy. SOFT TISSUE/ABDOMINAL WALL: Fat-containing umbilical hernia. IMPRESSION: 1. Increasing area of sclerosis of the T5-T6 and T12 vertebral bodies concerning for progression of disease. Other areas of sclerosis appear relatively stable. No lymphadenopathy identified. 2. Postsurgical changes left breast. [facility], Workstation: [email or web address], 11/22/2024 4:00 PM
== END | disposition home or self-care (01) ==
LOC: RADNMMAIN 10:06
PROVIDERS: ATTEND Internal Medicine Hematology & Oncology
DX: C50.512 Malignant neoplasm of lower-outer quadrant of left female breast (principal); I10 Essential (primary) hypertension; Z71.3 Dietary counseling and surveillance; Z17.0 Estrogen receptor positive status [ER+]; M81.0 Age-related osteoporosis without current pathological fracture; M13.0 Polyarthritis, unspecified; Z98.890 Other specified postprocedural states
CPT/HCPCS: 82565; 84520; 71260; 74177; 36415; Q9967

== ENCOUNTER → 2024-11-24 | Outpatient (CLI) | payer BC ==
--- NOTE | 2024-11-24 12:55 | NM ---
EXAMINATION TYPE: NM bone scan whole body DATE OF EXAM: 11/24/2024 12:36 PM CLINICAL INDICATION:Female, 54 years old with history of Z17.0 breast ca; COMPARISON: 01/30/2024. TECHNIQUE: Intravenous administration 20.2 mCi Tc 99m MDP followed by multiple scintigraphic images o f the appendicular and axial skeleton. Small [id number] thorax pelvis and head imaging was also pe rformed. Images acquired 3 hours post injection. FINDINGS: Abnormal uptake is identified within the right hip the left ribs and scattered within the spine and d istal right clavicle. Areas may also be noted in the pelvis including the left iliac bone and sacrum. Overall findings in the right femur and right iliac bone appear more prominent compared to prior. Ad ditionally the right calvarium lesion is also There is increased uptake within the bilateral shoulder, sternoclavicular, and sacroiliac joints con sistent with degenerative changes. No other photopenic areas or areas of increased activity are ident ified. Physiologic radiotracer activity is demonstrated in the kidneys and bladder. IMPRESSION: Increasing number and intensity of uptake concerning for progression of disease. [facility], , 11/24/2024 12:52 PM
== END | disposition home or self-care (01) ==
LOC: RADNMMAIN 08:14
PROVIDERS: ATTEND Internal Medicine Hematology & Oncology
DX: C50.512 Malignant neoplasm of lower-outer quadrant of left female breast (principal); Z17.0 Estrogen receptor positive status [ER+]; I10 Essential (primary) hypertension; M13.0 Polyarthritis, unspecified; M81.0 Age-related osteoporosis without current pathological fracture
CPT/HCPCS: 78306; A9503